=== PATIENT | female | born 1990 | race African-American/Black ===

== ENCOUNTER 2017-12-10 19:44 | Outpatient (CLI) | payer OTHER ==
[2017-12-10] MEDS: ACETAMINOPHEN 500 MG TAB PO (20:35)
[2017-12-10] MEDS: LACTATED RINGER'S 1,000 ML IV (21:45)
[2017-12-10 22:50] LABS: ADD MAN DIFF? NO
[2017-12-10 22:55] LABS: WHITE BLOOD COUNT 7.8 10^3/ul (4.8-10.8)
[2017-12-10 22:55] LABS: BASOPHILS % 0.1 % (0.0-2.0); EOSINOPHILS % 0.5 % (0.0-7.0); HEMATOCRIT 26.2 % (37.0-47.0); HEMOGLOBIN 8.9 g/dl (12.0-16.0); LYMPHOCYTES # 1.4 10^3/ul (0.8-2.9); LYMPHOCYTES % 17.8 % (15.0-51.0); MEAN CORPUSCULAR HEMOGLOBIN 24.9 pg (29.0-33.0); MEAN CORPUSCULAR VOLUME 73.2 fl (82.0-101.0); MEAN PLATELET VOLUME 9.2 fl (7.4-10.4); MONOCYTE # 0.9 10^3/ul (0.3-0.9); MONOCYTES % 11.2 % (0.0-11.0); NEUTROPHIL # 5.4 10^3/ul (1.6-7.5); NEUTROPHILS % 69.1 % (39.0-77.0); PLATELET COUNT 234 10^3/UL (140-415); RED BLOOD COUNT 3.58 10^6/ul (4.20-5.40); RED CELL DISTRIBUTION WIDTH 15.9 % (11.5-14.5)
[2017-12-10 23:01] LABS: ADD UMIC YES; UR ASCORBIC ACID 40 mg/dL (NEGATIVE); UR BILIRUBIN (Dip) 1+ mg/dL (NEGATIVE); UR BLOOD (Dip) NEGATIVE (NEGATIVE); UR CALCIUM OXALATE CRYSTAL FEW /HPF (NONE SEEN); UR CLARITY SLIGHTLY CLOUDY (CLEAR); UR COLOR YELLOW (YELLOW); UR GLUCOSE (Dip) 1+ mg/dL (NEGATIVE); UR KETONES (Dip) TRACE mg/dL (NEGATIVE); UR LEUKOCYTE ESTERASE (Dip) 2+ Leu/ul (NEGATIVE); UR MUCUS MANY /HPF (NONE SEEN); UR NITRITE (Dip) NEGATIVE (NEGATIVE); UR RBC 9 /HPF (0-5); UR SPECIFIC GRAVITY (Dip) 1.032 (1.003-1.030); UR SQUAMOUS EPITHELIAL CELL FEW /HPF (FEW); UR TOTAL PROTEIN (Dip) 2+ mg/dl (NEGATIVE); UR UROBILINOGEN (Dip) 1+ mg/dL (NEGATIVE); UR WBC 28 /HPF (0-5)
[2017-12-10 23:17] LABS: ALANINE AMINOTRANSFERASE 23 IU/L (13-69); ALBUMIN 3.4 g/dl (3.3-4.9); ALBUMIN/GLOBULIN RATIO 1.09; ALKALINE PHOSPHATASE 113 IU/L (42-121); ANION GAP 14 (8-16); ASPARTATE AMINO TRANSFERASE 17 IU/L (15-46); BILIRUBIN,INDIRECT 0.6 mg/dl (0-1.1); BILIRUBIN,TOTAL 0.6 mg/dl (0.2-1.3); BLOOD UREA NITROGEN 5 mg/dl (7-20); CALCIUM 8.8 mg/dl (8.4-10.2); CARBON DIOXIDE 20 mmol/L (21-31); CHLORIDE 107 mmol/L (97-110); GLUCOSE 117 mg/dl (70-220); POTASSIUM 3.3 mmol/L (3.5-5.1); SODIUM 138 mmol/L (135-144); TOTAL PROTEIN 6.5 g/dl (6.1-8.1); URIC ACID 3.5 mg/dl (3.1-7.9)
== END 2017-12-10 23:54 | disposition home or self-care (01) ==
LOC: OBT 19:44 → L-D 19:46 → OBT 23:54
DX: O62.9 Abnormality of forces of labor, unspecified (principal); O26.893 Other specified pregnancy related conditions, third trimester; R51 Headache; Z3A.37 37 weeks gestation of pregnancy
CPT/HCPCS: 36415; 76818; 80053; 81001; 84560; 85025; 96360; 96361

== ENCOUNTER 2017-12-27 09:55 | Inpatient (IN) | payer OTHER ==
[~2017-12-27 09:55] MED LIST: CEFAZOLIN 1 GM INJ; OXYTOCIN 30 UNITS/LR 500 ML BAG IV
[2017-12-27] MEDS ORDERED: MISOPROSTOL 200 MCG TAB PR ×3 (11:00→18:30)
[2017-12-27] MEDS: CEFAZOLIN 2 GM/50 ML (PMX) 50 ML IV (11:00)
[2017-12-27] MEDS ORDERED: CARBOPROST 250 MCG INJ IM ×3 (11:00→18:30)
[2017-12-27] MEDS ORDERED: METHYLERGONOVINE 0.2 MG INJ IM ×3 (11:00→18:30)
[2017-12-27] MEDS ORDERED: OXYTOCIN 30 UNITS/LR 500 ML IV ×3 (11:00→18:30)
[2017-12-27 11:39] LABS: ADD MAN DIFF? NO
[2017-12-27 11:42] LABS: WHITE BLOOD COUNT 7.4 10^3/ul (4.8-10.8)
[2017-12-27 11:42] LABS: BASOPHILS % 0.1 % (0.0-2.0); EOSINOPHILS % 0.5 % (0.0-7.0); HEMATOCRIT 28.5 % (37.0-47.0); HEMOGLOBIN 9.5 g/dl (12.0-16.0); LYMPHOCYTES # 1.2 10^3/ul (0.8-2.9); LYMPHOCYTES % 15.6 % (15.0-51.0); MEAN CORPUSCULAR HEMOGLOBIN 23.8 pg (29.0-33.0); MEAN CORPUSCULAR HGB CONC 33.3 g/dl (32.0-37.0); MEAN CORPUSCULAR VOLUME 71.3 fl (82.0-101.0); MEAN PLATELET VOLUME 9.2 fl (7.4-10.4); MONOCYTE # 0.8 10^3/ul (0.3-0.9); MONOCYTES % 10.6 % (0.0-11.0); NEUTROPHIL # 5.3 10^3/ul (1.6-7.5); NEUTROPHILS % 72.2 % (39.0-77.0); PLATELET COUNT 249 10^3/UL (140-415)
[2017-12-27 11:55] LABS: PARTIAL THROMBOPLASTIN TIME 25.1 Sec (25.0-35.0)
[2017-12-27 12:29] LABS: INR 0.97
[2017-12-27] MEDS: LACTATED RINGER'S 1,000 ML IV ×3 (13:05→19:45)
[2017-12-27 13:26] LABS: AMPHETAMINE/METHAMPHETAMINE Negative (NEGATIVE); BARBITURATES Negative (NEGATIVE); BENZODIAZEPINES Negative (NEGATIVE); CANNABINOIDS Negative (NEGATIVE); COCAINE Negative (NEGATIVE); OPIATES Negative (NEGATIVE)
[2017-12-27] MEDS ORDERED: ONDANSETRON 4 MG INJ (13:45)
[2017-12-27] MEDS ORDERED: PHENYLephrine (100 MCG/ML) 5ML SYG ×2 (13:45→14:51)
[2017-12-27] MEDS ORDERED: morphine SULFATE/PF (10 MG/10 ML) INJ (13:45)
[2017-12-27] MEDS ORDERED: OXYTOCIN 10 UNIT INJ (13:45)
[2017-12-27] MEDS ORDERED: PHENYLephrine 10 MG INJ (14:03)
[2017-12-27 14:26] LABS: HEPATITIS B SURFACE ANTIGEN NEGATIVE (NEGATIVE)
[2017-12-27] MEDS ORDERED: FENTAnyl 50 MCG/ML VIAL (15:15)
[2017-12-27] MEDS ORDERED: ZOLPIDEM 5 MG TAB PO ×2 (15:30→18:30)
[2017-12-27] MEDS ORDERED: DIPHENHYDRAMINE 50 MG INJ IV ×2 (15:30→18:30)
[2017-12-27] MEDS ORDERED: ONDANSETRON 4 MG INJ IV ×3 (15:30→18:30)
[2017-12-27] MEDS: OXYTOCIN 30 UNITS/LR 500 ML IV (15:33)
[2017-12-27] MEDS ORDERED: KETOROLAC 30 MG INJ (16:42)
[2017-12-27] MEDS: KETOROLAC 30 MG INJ IV ×2 (16:50→23:36)
[2017-12-27] MEDS ORDERED: NALOXONE (0.4 MG/ML) INJ IV (17:00)
[2017-12-27] MEDS ORDERED: OXYCODONE/ACETAMINOPHEN (5/325) TAB PO (18:30)
[2017-12-27] MEDS ORDERED: LANOLIN 7 GM TUBE TOP (18:30)
[2017-12-27] MEDS: DIPHENHYDRAMINE 50 MG INJ IV (19:07)
[2017-12-27 19:21] LABS: RAPID PLASMA REAGIN NONREACTIVE (NR)
[2017-12-27] MEDS: morphine 2 MG INJ IV (19:31)
[2017-12-27] MEDS: SENNA/DOCUSATE NA (8.6MG/50MG) TAB PO (21:33)
[2017-12-28] MEDS: DIPHENHYDRAMINE 50 MG INJ IV (01:05)
[2017-12-28] MEDS: LACTATED RINGER'S 1,000 ML IV ×2 (03:54→10:15)
[2017-12-28] MEDS: KETOROLAC 30 MG INJ IV ×2 (05:40→14:09)
[2017-12-28] MEDS: SENNA/DOCUSATE NA (8.6MG/50MG) TAB PO ×2 (09:32→20:48)
[2017-12-28 10:10] LABS: ADD MAN DIFF? NO
[2017-12-28 10:13] LABS: WHITE BLOOD COUNT 9.3 10^3/ul (4.8-10.8)
[2017-12-28 10:13] LABS: BASOPHILS % 0.2 % (0.0-2.0); EOSINOPHILS % 0.3 % (0.0-7.0); HEMATOCRIT 27.2 % (37.0-47.0); HEMOGLOBIN 9.1 g/dl (12.0-16.0); LYMPHOCYTES # 0.8 10^3/ul (0.8-2.9); LYMPHOCYTES % 8.2 % (15.0-51.0); MEAN CORPUSCULAR HEMOGLOBIN 23.8 pg (29.0-33.0); MEAN CORPUSCULAR HGB CONC 33.5 g/dl (32.0-37.0); MONOCYTE # 0.9 10^3/ul (0.3-0.9); MONOCYTES % 9.2 % (0.0-11.0); NEUTROPHIL # 7.6 10^3/ul (1.6-7.5); NEUTROPHILS % 81.7 % (39.0-77.0); PLATELET COUNT 217 10^3/UL (140-415); RED BLOOD COUNT 3.83 10^6/ul (4.20-5.40); RED CELL DISTRIBUTION WIDTH 16.1 % (11.5-14.5)
[2017-12-28] MEDS: morphine 2 MG INJ IV (10:33)
[2017-12-28] MEDS: IBUPROFEN 600 MG TAB PO (17:59)
[2017-12-28] MEDS: OXYCODONE/ACETAMINOPHEN (5/325) TAB PO (19:38)
[2017-12-29] MEDS: IBUPROFEN 600 MG TAB PO ×5 (00:15→23:48)
[2017-12-29] MEDS: OXYCODONE/ACETAMINOPHEN (5/325) TAB PO ×4 (01:03→20:32)
[2017-12-29] MEDS: SENNA/DOCUSATE NA (8.6MG/50MG) TAB PO ×2 (07:49→20:32)
[2017-12-30] MEDS: OXYCODONE/ACETAMINOPHEN (5/325) TAB PO ×2 (02:47→07:16)
[2017-12-30] MEDS: IBUPROFEN 600 MG TAB PO ×2 (06:13→11:35)
[2017-12-30] MEDS ORDERED: DIPHTH/TET/ACEL PERTUSS (ADULT) 0.5 ML VIAL IM* (09:00)
[2017-12-30] MEDS: SENNA/DOCUSATE NA (8.6MG/50MG) TAB PO (11:35)
== END 2017-12-30 12:55 | disposition home or self-care (01) | DRG 766 ==
LOC: L-D 09:55 → PP1 18:08
PROVIDERS: Obstetrics & Gynecology
PROC: 10D00Z1 Extraction of Products of Conception, Low, Open Approach (ICD-10-PCS; principal; 2017-12-27 12:30)
DX: O34.219 Maternal care for unspecified type scar from previous cesarean delivery (principal); O36.63X0 Maternal care for excessive fetal growth, third trimester, not applicable or unspecified; Z37.0 Single live birth; Z3A.39 39 weeks gestation of pregnancy
CPT/HCPCS: 80307; 85025; 85610; 85730; 86592; 86850; 86900; 86901; 87340; 94760; 99464